=== PATIENT | male | born 1935 | race Caucasian/White ===

== ENCOUNTER 2017-10-23 17:56 | Emergency (ER) | payer MEDICARE, BC ==
[~2017-10-23] VITALS: Ht 172.7 cm; Wt 69.1 kg
[~2017-10-23 17:56] MED LIST: ASPIRIN E.C. 8181 MG PO; CIPRO 500MG TA500 MG PO; DOXYCYCLINE 10100 MG PO; FLOMAX 0.40.4 MG/CAP PO; GLUCOPHAGE1000 MG PO; LISINOPRIL10 MG PO; METFORMIN1000 MG PO; NEURONTIN300 MG/CAP PO; NORCO 325 MG-7.1 TAB PO; PRAVACHOL 20MG20 MG PO; PRAVASTATIN20 MG PO; PYRIDIUM 100MG100 MG PO; TERAZOSIN5 MG PO; UNABLE; ZESTRIL 10MG10 MG PO
[2017-10-23 17:58] VITALS: TEMP 98.1
[2017-10-23 18:59] LABS: BASO # 0.1 (0.0-0.2); BASO % 0.4 % (0.0-2.0); EOS # 0.1 (0.0-0.7); EOS % 0.6 % (0-4.0); GRAN # 11.3 (1.4-6.5); GRAN % 88.3 % (42.2-75.2); HEMATOCRIT 42.7 % (42.0-52.0); HEMOGLOBIN 13.8 g/dl (13.5-18.0); LYMPH % 7.5 % (20.0-51.0); MEAN CELL VOLUME 84 fl (80.0-100.0); MEAN CORPUSCULAR HEMOGLOBIN 27 pg (27.0-31.0); MEAN CORPUSCULAR HGB CONC 32 g/dl (33.0-37.0); MEAN PLATELET VOLUME 12.3 fl (7.4-10.4); MONO # 0.4 (0.1-0.6); MONO % 2.8 % (1.7-9.3); PLATELET COUNT 258 K/mm3 (130-400); RED BLOOD COUNT 5.11 M/mm3 (4.20-5.60); REDCELL DISTRIBUTION WIDTH-CV 16.3 % (11.5-14.5)
[2017-10-23 19:09] LABS: CALCIUM 9.3 mg/dL (8.4-10.2); CREATININE, serum 1.46 mg/dL (0.66-1.25); POTASSIUM 4.6 mmol/L (3.4-5.0)
[2017-10-23] MEDS ORDERED: PRILOTC (19:43)
[2017-10-23] MEDS ORDERED: PHENERGAN 25 TA25 MG PO (19:43)
[2017-10-23] MEDS ORDERED: AMBIEN 10MG10 MG PO (19:45)
[2017-10-23] MEDS ORDERED: ASPIRIN 81M81 MG/TA2 PO (19:45)
[2017-10-23] MEDS ORDERED: GLUCOTROL10 MG PO (19:46)
[2017-10-23 20:50] VITALS: BP 162/106; PULSE 101
== END 2017-10-23 21:03 | disposition home or self-care (01) ==
LOC: COL.ER 17:56
PROVIDERS: Emergency Medicine
DX: S00.93XA Contusion of unspecified part of head, initial encounter (principal); S22.42XA Multiple fractures of ribs, left side, initial encounter for closed fracture; J44.9 Chronic obstructive pulmonary disease, unspecified; I10 Essential (primary) hypertension; E11.9 Type 2 diabetes mellitus without complications; E78.00 Pure hypercholesterolemia, unspecified; F17.210 Nicotine dependence, cigarettes, uncomplicated; Z79.82 Long term (current) use of aspirin; Z79.84 Long term (current) use of oral hypoglycemic drugs; Z23 Encounter for immunization; Y92.009 Unspecified place in unspecified non-institutional (private) residence as the place of occurrence of the external cause; W18.39XA Other fall on same level, initial encounter
CPT/HCPCS: J1170; J2405; J3010; J7030

== ENCOUNTER 2017-10-24 12:44 | Inpatient (IN) | payer MEDICARE, BC ==
[~2017-10-24] VITALS: Ht 172.7 cm; Wt 70.5 kg
[~2017-10-24 12:44] MED LIST changes: +AMBIEN 10MG10 MG PO; +ASPIRIN 81M81 MG/TA2 PO; +GLUCOTROL10 MG PO; +PHENERGAN 25 TA25 MG PO; +PRILOTC
[2017-10-24 13:36] LABS: BASO % 0.3 % (0.0-2.0); EOS % 0.1 % (0-4.0); GRAN # 10.5 (1.4-6.5); HEMATOCRIT 41.1 % (42.0-52.0); HEMOGLOBIN 13.1 g/dl (13.5-18.0); LYMPH # 0.7 (1.2-3.4); LYMPH % 5.7 % (20.0-51.0); MEAN CELL VOLUME 83 fl (80.0-100.0); MEAN CORPUSCULAR HEMOGLOBIN 27 pg (27.0-31.0); MEAN CORPUSCULAR HGB CONC 32 g/dl (33.0-37.0); MEAN PLATELET VOLUME 12.3 fl (7.4-10.4); MONO # 0.5 (0.1-0.6); MONO % 4.6 % (1.7-9.3); PLATELET COUNT 245 K/mm3 (130-400); RED BLOOD COUNT 4.94 M/mm3 (4.20-5.60); REDCELL DISTRIBUTION WIDTH-CV 16.1 % (11.5-14.5)
[2017-10-24 13:44] LABS: BILIRUBIN,TOTAL 0.4 mg/dL (0.0-1.0); CALCIUM 9.2 mg/dL (8.4-10.2); CREATININE, serum 1.17 mg/dL (0.66-1.25); POTASSIUM 4.7 mmol/L (3.4-5.0); TOTAL PROTEIN 7.6 gm/dL (6.4-8.2)
[2017-10-24 14:40] VITALS: BP 149/74; PULSE 107; TEMP 97.6
[2017-10-24 17:32] VITALS: BP 143/73; PULSE 102; TEMP 98.2
[2017-10-24 19:50] VITALS: BP 142/94; PULSE 97; TEMP 98.3
[2017-10-24 23:25] VITALS: BP 155/73; PULSE 97; TEMP 98.3
[2017-10-25] VITALS (8 sets, daily range): BP systolic 108–152; BP diastolic 55–77; PULSE 71–126; TEMP 97.4–98.6
[2017-10-25 06:27] LABS: BASO % 0.3 % (0.0-2.0); EOS % 0.3 % (0-4.0); GRAN # 7.2 (1.4-6.5); GRAN % 83.4 % (42.2-75.2); HEMATOCRIT 38.2 % (42.0-52.0); HEMOGLOBIN 12.1 g/dl (13.5-18.0); LYMPH # 0.8 (1.2-3.4); LYMPH % 9.6 % (20.0-51.0); MEAN CELL VOLUME 86 fl (80.0-100.0); MEAN CORPUSCULAR HEMOGLOBIN 27 pg (27.0-31.0); MEAN CORPUSCULAR HGB CONC 32 g/dl (33.0-37.0); MEAN PLATELET VOLUME 12.7 fl (7.4-10.4); MONO # 0.5 (0.1-0.6); MONO % 6.1 % (1.7-9.3); PLATELET COUNT 225 K/mm3 (130-400); RED BLOOD COUNT 4.46 M/mm3 (4.20-5.60)
[2017-10-25 06:50] LABS: ALBUMIN 3.4 gm/dL (3.5-5.0); BILIRUBIN,TOTAL 0.3 mg/dL (0.0-1.0); CALCIUM 8.7 mg/dL (8.4-10.2); CREATININE, serum 1.27 mg/dL (0.66-1.25); POTASSIUM 4.5 mmol/L (3.4-5.0); TOTAL PROTEIN 6.4 gm/dL (6.4-8.2)
[2017-10-26] VITALS (495 sets, daily range): BP systolic 133–150; BP diastolic 60–117; PULSE 64–91; TEMP 97.4–98.6; O2SAT 72–100
[2017-10-26 06:40] LABS: BASO % 0.3 % (0.0-2.0); EOS % 0.2 % (0-4.0); GRAN # 10.3 (1.4-6.5); GRAN % 86.4 % (42.2-75.2); HEMATOCRIT 39.7 % (42.0-52.0); HEMOGLOBIN 12.8 g/dl (13.5-18.0); LYMPH # 0.8 (1.2-3.4); LYMPH % 6.4 % (20.0-51.0); MEAN CELL VOLUME 85 fl (80.0-100.0); MEAN CORPUSCULAR HEMOGLOBIN 27 pg (27.0-31.0); MEAN CORPUSCULAR HGB CONC 32 g/dl (33.0-37.0); MEAN PLATELET VOLUME 12.7 fl (7.4-10.4); MONO # 0.8 (0.1-0.6); MONO % 6.3 % (1.7-9.3); PLATELET COUNT 260 K/mm3 (130-400); RED BLOOD COUNT 4.69 M/mm3 (4.20-5.60); REDCELL DISTRIBUTION WIDTH-CV 16.1 % (11.5-14.5)
[2017-10-26 06:50] LABS: CALCIUM 9.2 mg/dL (8.4-10.2); CREATININE, serum 1.36 mg/dL (0.66-1.25); MAGNESIUM 1.9 mg/dL (1.6-2.3); POTASSIUM 4.5 mmol/L (3.4-5.0)
[2017-10-26 06:58] LABS: INR 1.4 (0.8-3.0); PROTHROMBIN TIME 16.6 SECONDS (9.7-12.8)
[2017-10-26 19:57] LABS: ARTERIAL BLD GAS O2 SATURATION 95.7 % (92-100); ARTERIAL BLD GAS TCO2 CT 14.2; ARTERIAL BLOOD GAS BASE EXCESS -12.5 (-2-2); ARTERIAL BLOOD GAS HCO3 13.3 meq/L (22-26); ARTERIAL BLOOD GAS PCO2 30.5 mmHg (35-45); ARTERIAL BLOOD GAS PO2 87.5 mmHg (80-100); ARTERIAL BLOOD GAS pH 7.26 (7.35-7.45)
[2017-10-26 20:46] LABS: ANION GAP 20 mmol/L (7-16); BLOOD UREA NITROGEN 25 mg/dL (9-20); CALCIUM 9.1 mg/dL (8.4-10.2); CARBON DIOXIDE 16 mmol/L (22-30); CHLORIDE 100 mmol/L (98-107); CREATININE, serum 1.48 mg/dL (0.66-1.25); GLUCOSE 286 mg/dL (74-106); LACTATE DEHYDROGENASE 552 U/L (313-618); POTASSIUM 4.6 mmol/L (3.4-5.0); SODIUM 136 mmol/L (137-145)
[2017-10-26 20:57] LABS: TROPONIN-I < 0.012 ng/mL (0.000-0.034)
[2017-10-26 22:08] LABS: ALCOHOL(ethanol),MEDICAL < 10 mg/dL; SALICYLATE < 1.0 mg/dL
[2017-10-26 22:30] LABS: ARTERIAL BLD GAS O2 SATURATION 94.7 % (92-100); ARTERIAL BLOOD GAS BASE EXCESS -9.9 (-2-2); ARTERIAL BLOOD GAS PCO2 30.6 mmHg (35-45); ARTERIAL BLOOD GAS pH 7.31 (7.35-7.45)
[2017-10-26 22:44] LABS: COLLECTION METHOD CLEAN CATCH
[2017-10-26 22:53] LABS: MUCOUS Present /lpf; PH 5 (5-8); SQUAMOUS EPITHELIAL None Seen /hpf; URINE APPEARANCE Clear; URINE BACTERIA None Seen /hpf; URINE BILIRUBIN Negative (NEGATIVE); URINE BLOOD 1+ (NEGATIVE); URINE COLOR Yellow; URINE GLUCOSE 1+ (NEGATIVE); URINE KETONE 2+ (NEGATIVE); URINE LEUKOCYTE ESTERASE Negative (NEGATIVE); URINE NITRATE Negative (NEGATIVE); URINE PROTEIN(semi-quant) 2+ (NEGATIVE); URINE UROBILINOGEN Negative (NEGATIVE)
[2017-10-26 23:21] LABS: MAGNESIUM 2.2 mg/dL (1.6-2.3); PHOSPHOROUS 5.5 mg/dL (2.5-4.5)
[2017-10-27] VITALS (947 sets, daily range): BP systolic 112–140; BP diastolic 57–97; PULSE 57–81; TEMP 97.1; O2SAT 71–100
[2017-10-27 01:17] LABS: CALCIUM 8.3 mg/dL (8.4-10.2); CREATININE, serum 1.24 mg/dL (0.66-1.25); POTASSIUM 3.8 mmol/L (3.4-5.0)
[2017-10-27 03:41] LABS: CALCIUM 8.5 mg/dL (8.4-10.2); CREATININE, serum 1.2 mg/dL (0.66-1.25); POTASSIUM 3.7 mmol/L (3.4-5.0)
[2017-10-27 05:33] LABS: HEMATOCRIT 33.5 % (42.0-52.0); HEMOGLOBIN 10.6 g/dl (13.5-18.0); MEAN CELL VOLUME 85 fl (80.0-100.0); MEAN CORPUSCULAR HEMOGLOBIN 27 pg (27.0-31.0); MEAN CORPUSCULAR HGB CONC 32 g/dl (33.0-37.0); MEAN PLATELET VOLUME 12.5 fl (7.4-10.4); PLATELET COUNT 247 K/mm3 (130-400); RED BLOOD COUNT 3.95 M/mm3 (4.20-5.60); REDCELL DISTRIBUTION WIDTH-CV 16.3 % (11.5-14.5)
[2017-10-27 05:46] LABS: CALCIUM 8.5 mg/dL (8.4-10.2); CREATININE, serum 1.21 mg/dL (0.66-1.25); POTASSIUM 3.7 mmol/L (3.4-5.0)
[2017-10-27 06:08] LABS: LYMPHOCYTE 5 % (20.0-51.0); NEUTROPHILS 95 % (42.0-75.2)
[2017-10-27 06:09] LABS: ANISOCYTOSIS 1+; POIKILOCYTOSIS 2+
[2017-10-27 06:10] LABS: BURR CELLS 2+; POLYCHROMASIA 1+
[2017-10-27 06:12] LABS: PLATELET ESTIMATE NORMAL (NORMAL)
[2017-10-27 07:25] LABS: CALCIUM 8.3 mg/dL (8.4-10.2); CREATININE, serum 1.14 mg/dL (0.66-1.25); POTASSIUM 3.8 mmol/L (3.4-5.0)
[2017-10-27 07:34] LABS: ARTERIAL BLD GAS O2 SATURATION 93.7 % (92-100); ARTERIAL BLOOD GAS BASE EXCESS -4.3 (-2-2); ARTERIAL BLOOD GAS HCO3 19.9 meq/L (22-26); ARTERIAL BLOOD GAS pH 7.39 (7.35-7.45)
[2017-10-27 09:19] LABS: CALCIUM 8.6 mg/dL (8.4-10.2); CREATININE, serum 1.11 mg/dL (0.66-1.25); POTASSIUM 3.7 mmol/L (3.4-5.0)
[2017-10-27 11:21] LABS: CALCIUM 8.7 mg/dL (8.4-10.2); CREATININE, serum 1.1 mg/dL (0.66-1.25); POTASSIUM 3.6 mmol/L (3.4-5.0)
[2017-10-27 13:23] LABS: CREATININE, serum 1.03 mg/dL (0.66-1.25); POTASSIUM 3.7 mmol/L (3.4-5.0)
[2017-10-27 16:11] LABS: CALCIUM 8.8 mg/dL (8.4-10.2); CREATININE, serum 1.14 mg/dL (0.66-1.25); POTASSIUM 4.1 mmol/L (3.4-5.0)
[2017-10-27 17:38] LABS: ARTERIAL BLD GAS O2 SATURATION 81.8 % (92-100); ARTERIAL BLD GAS TCO2 CT 19.7; ARTERIAL BLOOD GAS BASE EXCESS -5.7 (-2-2); ARTERIAL BLOOD GAS HCO3 18.7 meq/L (22-26); ARTERIAL BLOOD GAS PCO2 33.2 mmHg (35-45); ARTERIAL BLOOD GAS pH 7.37 (7.35-7.45)
[2017-10-27 17:39] LABS: ARTERIAL BLOOD GAS PO2 46.4 mmHg (80-100)
[2017-10-27 17:57] LABS: CALCIUM 8.3 mg/dL (8.4-10.2); CREATININE, serum 1.09 mg/dL (0.66-1.25)
[2017-10-27 19:45] LABS: CALCIUM 8.3 mg/dL (8.4-10.2); CREATININE, serum 1.1 mg/dL (0.66-1.25); POTASSIUM 4.3 mmol/L (3.4-5.0)
[2017-10-28] VITALS (873 sets, daily range): BP systolic 137–148; BP diastolic 70–83; PULSE 64–87; TEMP 96.7–98.2; O2SAT 72–100
[2017-10-28 05:28] LABS: ARTERIAL BLD GAS O2 SATURATION 96.7 % (92-100); ARTERIAL BLD GAS TCO2 CT 20.8; ARTERIAL BLOOD GAS BASE EXCESS -3.6 (-2-2); ARTERIAL BLOOD GAS HCO3 19.9 meq/L (22-26); ARTERIAL BLOOD GAS PCO2 30.6 mmHg (35-45); ARTERIAL BLOOD GAS PO2 90.8 mmHg (80-100); ARTERIAL BLOOD GAS pH 7.43 (7.35-7.45)
[2017-10-28 05:48] LABS: MEAN CELL VOLUME 85 fl (80.0-100.0); MEAN CORPUSCULAR HEMOGLOBIN 27 pg (27.0-31.0); MEAN CORPUSCULAR HGB CONC 32 g/dl (33.0-37.0); MEAN PLATELET VOLUME 12.8 fl (7.4-10.4); PLATELET COUNT 241 K/mm3 (130-400); RED BLOOD COUNT 3.71 M/mm3 (4.20-5.60); REDCELL DISTRIBUTION WIDTH-CV 16.7 % (11.5-14.5)
[2017-10-28 05:53] LABS: HEMATOCRIT 31.4 % (42.0-52.0)
[2017-10-28 06:01] LABS: CALCIUM 8.3 mg/dL (8.4-10.2); CREATININE, serum 1.01 mg/dL (0.66-1.25); POTASSIUM 4.1 mmol/L (3.4-5.0)
[2017-10-28 07:37] LABS: ANISOCYTOSIS 1+; BAND 9 % (0-10); HYPOCHROMIA 2+; LYMPHOCYTE 4 % (20.0-51.0); NEUTROPHILS 85 % (42.0-75.2); PLATELET ESTIMATE NORMAL (NORMAL)
[2017-10-28 07:39] LABS: BURR CELLS 2+
[2017-10-28 11:06] LABS: INR 1.4 (0.8-3.0); PROTHROMBIN TIME 16.2 SECONDS (9.7-12.8)
[2017-10-28 11:09] LABS: PARTIAL THROMBOPLASTIN TIME 40.4 SECONDS (26.0-37.0)
[2017-10-29] VITALS (817 sets, daily range): BP systolic 15–176; BP diastolic 70–870; PULSE 84–98; TEMP 96.5–97.7; O2SAT 72–100
[2017-10-29 05:28] LABS: ARTERIAL BLD GAS O2 SATURATION 95.4 % (92-100); ARTERIAL BLD GAS TCO2 CT 19.9; ARTERIAL BLOOD GAS BASE EXCESS -5.6 (-2-2); ARTERIAL BLOOD GAS HCO3 18.9 meq/L (22-26); ARTERIAL BLOOD GAS PCO2 33.4 mmHg (35-45); ARTERIAL BLOOD GAS PO2 82.1 mmHg (80-100); ARTERIAL BLOOD GAS pH 7.37 (7.35-7.45)
[2017-10-29 05:46] LABS: HEMOGLOBIN 10.2 g/dl (13.5-18.0); MEAN CELL VOLUME 84 fl (80.0-100.0); MEAN CORPUSCULAR HEMOGLOBIN 27 pg (27.0-31.0); MEAN CORPUSCULAR HGB CONC 32 g/dl (33.0-37.0); MEAN PLATELET VOLUME 12.1 fl (7.4-10.4); PLATELET COUNT 283 K/mm3 (130-400); RED BLOOD COUNT 3.77 M/mm3 (4.20-5.60); REDCELL DISTRIBUTION WIDTH-CV 17.1 % (11.5-14.5)
[2017-10-29 05:52] LABS: HEMATOCRIT 31.7 % (42.0-52.0)
[2017-10-29 05:58] LABS: CALCIUM 8.5 mg/dL (8.4-10.2); CREATININE, serum 1.07 mg/dL (0.66-1.25)
[2017-10-29 06:03] LABS: BAND 5 % (0-10); LYMPHOCYTE 1 % (20.0-51.0); NEUTROPHILS 93 % (42.0-75.2)
[2017-10-29 06:05] LABS: BURR CELLS 1+
[2017-10-29 06:06] LABS: ANISOCYTOSIS 1+; PLATELET ESTIMATE NORMAL (NORMAL)
[2017-10-30] VITALS (686 sets, daily range): BP systolic 128–158; BP diastolic 77–99; PULSE 65–98; TEMP 97.6–98.1; O2SAT 71–100
[2017-10-30 05:57] LABS: MEAN CELL VOLUME 84 fl (80.0-100.0); MEAN CORPUSCULAR HGB CONC 32 g/dl (33.0-37.0); MEAN PLATELET VOLUME 12.4 fl (7.4-10.4); PLATELET COUNT 260 K/mm3 (130-400); RED BLOOD COUNT 3.43 M/mm3 (4.20-5.60); REDCELL DISTRIBUTION WIDTH-CV 17.1 % (11.5-14.5)
[2017-10-30 06:05] LABS: HEMATOCRIT 28.8 % (42.0-52.0); HEMOGLOBIN 9.1 g/dl (13.5-18.0); MEAN CORPUSCULAR HEMOGLOBIN 27 pg (27.0-31.0)
[2017-10-30 06:24] LABS: CALCIUM 8.7 mg/dL (8.4-10.2); CREATININE, serum 1.1 mg/dL (0.66-1.25); POTASSIUM 4.1 mmol/L (3.4-5.0)
[2017-10-30 06:47] LABS: BAND 5 % (0-10); HYPERSEGMENTED POLYS PRESENT; LYMPHOCYTE 1 % (20.0-51.0); NEUTROPHILS 94 % (42.0-75.2); PLATELET ESTIMATE NORMAL (NORMAL)
[2017-10-30 06:48] LABS: ANISOCYTOSIS 1+; HYPOCHROMIA 2+
[2017-10-30 06:49] LABS: BURR CELLS 1+
[2017-10-31] VITALS (682 sets, daily range): BP systolic 133–162; BP diastolic 59–93; PULSE 78–100; TEMP 97.2–98.6; O2SAT 61–100
[2017-10-31 06:35] LABS: MEAN CELL VOLUME 84 fl (80.0-100.0); MEAN CORPUSCULAR HGB CONC 32 g/dl (33.0-37.0); MEAN PLATELET VOLUME 12.3 fl (7.4-10.4); PLATELET COUNT 275 K/mm3 (130-400); RED BLOOD COUNT 3.52 M/mm3 (4.20-5.60); REDCELL DISTRIBUTION WIDTH-CV 17.1 % (11.5-14.5)
[2017-10-31 06:41] LABS: HEMATOCRIT 29.7 % (42.0-52.0); HEMOGLOBIN 9.6 g/dl (13.5-18.0); MEAN CORPUSCULAR HEMOGLOBIN 27 pg (27.0-31.0)
[2017-10-31 06:48] LABS: CALCIUM 8.9 mg/dL (8.4-10.2); CREATININE, serum 1.16 mg/dL (0.66-1.25); POTASSIUM 3.6 mmol/L (3.4-5.0)
[2017-10-31 08:02] LABS: BAND 1 % (0-10); LYMPHOCYTE 9 % (20.0-51.0); NEUTROPHILS 85 % (42.0-75.2); NUCLEATED RED BLOOD CELL 1 (0-6); PLATELET ESTIMATE NORMAL (NORMAL)
[2017-10-31 08:03] LABS: ANISOCYTOSIS 1+; POIKILOCYTOSIS 1+
[2017-10-31 08:04] LABS: HYPOCHROMIA 1+; OVALOCYTES 1+
[2017-10-31 08:05] LABS: BURR CELLS 1+
[2017-11-01] VITALS (7 sets, daily range): BP systolic 100–156; BP diastolic 65–77; PULSE 63–108; TEMP 98–98.6
[2017-11-01 06:01] LABS: HEMOGLOBIN 10.3 g/dl (13.5-18.0); MEAN CELL VOLUME 85 fl (80.0-100.0); MEAN CORPUSCULAR HEMOGLOBIN 27 pg (27.0-31.0); MEAN CORPUSCULAR HGB CONC 32 g/dl (33.0-37.0); MEAN PLATELET VOLUME 12.3 fl (7.4-10.4); PLATELET COUNT 321 K/mm3 (130-400); RED BLOOD COUNT 3.76 M/mm3 (4.20-5.60); REDCELL DISTRIBUTION WIDTH-CV 16.8 % (11.5-14.5)
[2017-11-01 06:06] LABS: HEMATOCRIT 31.9 % (42.0-52.0)
[2017-11-01 06:10] LABS: CREATININE, serum 1.22 mg/dL (0.66-1.25); POTASSIUM 3.4 mmol/L (3.4-5.0)
[2017-11-01 07:04] LABS: ANISOCYTOSIS 1+; PLATELET ESTIMATE NORMAL (NORMAL)
[2017-11-01 07:15] LABS: NEUTROPHILS 83 % (42.0-75.2)
[2017-11-01 07:16] LABS: BAND 2 % (0-10); LYMPHOCYTE 12 % (20.0-51.0)
[2017-11-01 07:18] LABS: HYPOCHROMIA 1+
[2017-11-02 02:34] VITALS: BP 159/61; PULSE 88; TEMP 98.6
[2017-11-02 07:30] VITALS: BP 140/60; PULSE 99; TEMP 97.8
[2017-11-02] MEDS ORDERED: CARDIZEM CD 24240 MG PO (07:52)
[2017-11-02] MEDS ORDERED: MIRALAX510G PO (07:52)
[2017-11-02] MEDS ORDERED: COLACE 100100 MG/CAP PO (07:52)
[2017-11-02 08:26] LABS: HEMATOCRIT 33.4 % (42.0-52.0); HEMOGLOBIN 10.6 g/dl (13.5-18.0); MEAN CELL VOLUME 85 fl (80.0-100.0); MEAN CORPUSCULAR HEMOGLOBIN 27 pg (27.0-31.0); MEAN CORPUSCULAR HGB CONC 32 g/dl (33.0-37.0); MEAN PLATELET VOLUME 12.2 fl (7.4-10.4); PLATELET COUNT 332 K/mm3 (130-400); RED BLOOD COUNT 3.95 M/mm3 (4.20-5.60); REDCELL DISTRIBUTION WIDTH-CV 17.1 % (11.5-14.5)
[2017-11-02 08:39] LABS: CALCIUM 8.6 mg/dL (8.4-10.2); CREATININE, serum 1.24 mg/dL (0.66-1.25); POTASSIUM 3.4 mmol/L (3.4-5.0)
[2017-11-02 08:46] LABS: LYMPHOCYTE 5 % (20.0-51.0); METAMYELOCYTE 1 % (0-0); NEUTROPHILS 91 % (42.0-75.2)
[2017-11-02 08:48] LABS: ANISOCYTOSIS 1+; PLATELET ESTIMATE NORMAL (NORMAL)
[2017-11-02 08:50] LABS: BURR CELLS 3+
[2017-11-02] MEDS ORDERED: INCRUSE EL62.5 MCG/A IH (10:52)
[2017-11-02] MEDS ORDERED: LEVEMIR FLEX100 U/ML SQ (10:53)
[2017-11-02] MEDS ORDERED: PROAIR HFA0.09 MG/AC IH (10:53)
[2017-11-02] MEDS ORDERED: GLUCOPHAGE500 MG/TAB PO (10:53)
[2017-11-02] MEDS ORDERED: FREESTYLE PREC1 EAC5 MC (10:54)
[2017-11-02] MEDS ORDERED: THE MEDICINE SH1 DE3 MC (10:54)
[2017-11-02] MEDS ORDERED: LANCETS MC (10:55)
[2017-11-02] MEDS ORDERED: GLUCOSE TEST ST1 DEV MC (10:55)
[2017-11-02] MEDS ORDERED: PERCOCET 325 MG1 TA3 PO (10:57)
[2017-11-02] MEDS ORDERED: ASPI325T6 PO (11:04)
== END 2017-11-02 13:41 | disposition home health service (06) | DRG 183 ==
LOC: COL.ER 12:44 → MEDICAL 13:22 → ICU 10-26 11:55 → MEDICAL 10-31 18:04
PROVIDERS: Emergency Medicine; Internal Medicine; Internal Medicine Pulmonary Disease; Nurse Practitioner Family
PROC: 02H633Z Insertion of Infusion Device into Right Atrium, Percutaneous Approach (ICD-10-PCS; principal; 2017-10-26)
DX: S22.42XA Multiple fractures of ribs, left side, initial encounter for closed fracture (principal); J96.01 Acute respiratory failure with hypoxia; J98.11 Atelectasis; I48.92 Unspecified atrial flutter; E87.2 Acidosis; J90 Pleural effusion, not elsewhere classified; I10 Essential (primary) hypertension; E11.65 Type 2 diabetes mellitus with hyperglycemia; J44.9 Chronic obstructive pulmonary disease, unspecified; W18.30XA Fall on same level, unspecified, initial encounter; F17.210 Nicotine dependence, cigarettes, uncomplicated; Z85.828 Personal history of other malignant neoplasm of skin
CPT/HCPCS: 99232-AI; 99233-AI; 99239; A9284; C1751; G0378; G8987-GO; G8988-GO; J0456; J0696; J1170; J1644; J1650; J1815; J2270; J2405; J2543; J2920; J2930; J3010; J3480; J7030; J7050

== ENCOUNTER 2017-12-01 09:06 | Outpatient (CLI) | payer MEDICARE, BC ==
[~2017-12-01] VITALS: Ht 172.8 cm; Wt 64.5 kg
[~2017-12-01 09:06] MED LIST changes: +ASPI325T6 PO; +CARDIZEM CD 24240 MG PO; +COLACE 100100 MG/CAP PO; +FREESTYLE PREC1 EAC5 MC; +GLUCOPHAGE500 MG/TAB PO; +GLUCOSE TEST ST1 DEV MC; +INCRUSE EL62.5 MCG/A IH; +LANCETS MC; +LEVEMIR FLEX100 U/ML SQ; +MIRALAX510G PO; +PERCOCET 325 MG1 TA3 PO; +PROAIR HFA0.09 MG/AC IH; +THE MEDICINE SH1 DE3 MC
[2017-12-01 09:53] VITALS: BP 123/68; PULSE 65
[2017-12-01] MEDS ORDERED: ASPIRIN 32325 MG/TAB PO (09:57)
[2017-12-01] MEDS ORDERED: CARDIZEM CD 24240 MG PO (09:58)
[2017-12-01] MEDS ORDERED: INCRUSE EL62.5 MCG/A IH (09:59)
[2017-12-01] MEDS ORDERED: PROAIR HFA0.09 MG/AC IH (10:00)
[2017-12-01] MEDS ORDERED: GLUCOPHAGE500 MG/TAB PO (10:00)
[2017-12-01] MEDS ORDERED: NORCO 325 MG-7.1 TAB PO (10:01)
[2017-12-01] MEDS ORDERED: LEVEMIR FLEX100 U/ML SQ (10:01)
[2017-12-01] MEDS ORDERED: CEPHALEXIN500 M1 PO (10:52)
== END 2017-12-01 11:28 | disposition home or self-care (01) ==
LOC: COL.CAR
DX: I48.0 Paroxysmal atrial fibrillation (principal); R42 Dizziness and giddiness; I48.92 Unspecified atrial flutter; N40.0 Benign prostatic hyperplasia without lower urinary tract symptoms; K21.9 Gastro-esophageal reflux disease without esophagitis; E78.5 Hyperlipidemia, unspecified; I10 Essential (primary) hypertension; M19.90 Unspecified osteoarthritis, unspecified site; E11.9 Type 2 diabetes mellitus without complications; I72.3 Aneurysm of iliac artery; I05.9 Rheumatic mitral valve disease, unspecified; F17.210 Nicotine dependence, cigarettes, uncomplicated; Z79.82 Long term (current) use of aspirin; Z79.4 Long term (current) use of insulin; Z82.49 Family history of ischemic heart disease and other diseases of the circulatory system; Z82.3 Family history of stroke

== ENCOUNTER → 2018-11-16 | Outpatient (CLI) | payer OTHER ==
[~2018-11-16] MED LIST changes: +ASPIRIN 32325 MG/TAB PO; +CEPHALEXIN500 M1 PO
== END ==
LOC: COL.RAD 13:06
DX: M51.26 Other intervertebral disc displacement, lumbar region (principal); M48.07 Spinal stenosis, lumbosacral region

== ENCOUNTER 2019-06-05 18:55 | Emergency (ER) | payer MEDICARE, BC ==
[~2019-06-05] VITALS: Ht 172.7 cm; Wt 59.1 kg
[2019-06-05 18:58] VITALS: TEMP 97.8
[2019-06-05] MEDS ORDERED: GLUCOPHAGE1000 MG PO (19:22)
[2019-06-05] MEDS ORDERED: GLUCOTROL10 MG PO (19:23)
[2019-06-05] MEDS ORDERED: LEVEMIR FLEX100 U/ML SQ (19:24)
[2019-06-05] MEDS ORDERED: ZESTRIL40 MG PO (19:25)
[2019-06-05] MEDS ORDERED: STOOL SOFTENER100 M2 PO (19:28)
[2019-06-05] MEDS ORDERED: ULTRAM 50MG TAB50 MG PO (19:29)
[2019-06-05 20:09] VITALS: BP 157/79; PULSE 88
== END 2019-06-05 20:09 | disposition home or self-care (01) ==
LOC: COL.ER 18:55
DX: E16.2 Hypoglycemia, unspecified (principal); R41.82 Altered mental status, unspecified; Z79.82 Long term (current) use of aspirin; Z79.4 Long term (current) use of insulin

== ENCOUNTER 2019-12-20 15:01 | Inpatient (IN) | payer MEDICARE, BC ==
[~2019-12-20] VITALS: Ht 175.3 cm; Wt 53.2 kg
[~2019-12-20 15:01] MED LIST changes: +STOOL SOFTENER100 M2 PO; +ULTRAM 50MG TAB50 MG PO; +ZESTRIL40 MG PO
[2019-12-20 15:43] LABS: HEMATOCRIT 39.5 % (42.0-52.0); MEAN CELL VOLUME 88 fl (80.0-100.0); MEAN CORPUSCULAR HEMOGLOBIN 31 pg (27.0-31.0); MEAN CORPUSCULAR HGB CONC 35 g/dl (33.0-37.0); MEAN PLATELET VOLUME 12.1 fl (7.4-10.4); RED BLOOD COUNT 4.48 M/mm3 (4.20-5.60); REDCELL DISTRIBUTION WIDTH-CV 14.8 % (11.5-14.5)
[2019-12-20 15:46] LABS: INR 1.4 (0.8-3.0); PROTHROMBIN TIME 16.2 SECONDS (9.7-12.8)
[2019-12-20 15:47] LABS: PLATELET COUNT 42 K/mm3 (130-400)
[2019-12-20 15:52] LABS: ALBUMIN 3.2 gm/dL (3.5-5.0); BILIRUBIN,TOTAL 7.2 mg/dL (0.0-1.0); MAGNESIUM 1.9 mg/dL (1.6-2.3); POTASSIUM 4.1 mmol/L (3.4-5.0); TOTAL PROTEIN 6.1 gm/dL (6.4-8.2)
[2019-12-20 15:55] LABS: CREATININE, serum 2.46 (0.66-1.25)
[2019-12-20 16:04] LABS: COLLECTION METHOD CLEAN CATCH
[2019-12-20 16:05] LABS: TROPONIN-I 0.135 ng/mL (0.000-0.035)
[2019-12-20 16:07] LABS: BAND 5 % (0-10); LYMPHOCYTE 7 % (20.0-51.0); METAMYELOCYTE 1 % (0-0); NEUTROPHILS 84 % (42.0-75.2); PLATELET ESTIMATE DECREASED (NORMAL)
[2019-12-20 16:08] LABS: ANISOCYTOSIS 2+; POIKILOCYTOSIS 1+; SCHISTOCYTES 2+
[2019-12-20 16:19] LABS: MUCOUS Present /lpf; PH 5 (5-8); SQUAMOUS EPITHELIAL None Seen /hpf; URINE APPEARANCE Hazy; URINE BACTERIA None Seen /hpf; URINE BILIRUBIN Negative (NEGATIVE); URINE BLOOD 2+ (NEGATIVE); URINE COLOR Amber; URINE GLUCOSE Negative (NEGATIVE); URINE KETONE Negative (NEGATIVE); URINE LEUKOCYTE ESTERASE Negative (NEGATIVE); URINE NITRATE Negative (NEGATIVE); URINE PROTEIN(semi-quant) 2+ (NEGATIVE); URINE UROBILINOGEN >=4.0 mg/dL (NEGATIVE)
[2019-12-20 16:25] LABS: C-REACTIVE PROTEIN 54.1 mg/dL (0.0-0.9)
[2019-12-20 18:37] VITALS: BP 105/61; PULSE 74; TEMP 97.9
[2019-12-20 20:45] VITALS: BP 125/77; PULSE 81; TEMP 98.3
--- NOTE | 2019-12-20 21:30 | NUR ---
Admission assessment complete. VS stable. Oriented to room/policy. Plan of care discussed for this shift to include pain control, NPO at midnight, HS meds and IV fluids. Verbalizes undrstanding. Call light in reach/bed in low/alarm on. Will monitor.
[2019-12-21] VITALS (445 sets, daily range): BP systolic 65–127; BP diastolic 40–75; PULSE 67–135; TEMP 97.3–99; O2SAT 68–99
--- NOTE | 2019-12-21 04:20 | NUR ---
Notified by telecommunication engineer of possible A-FIB. Cardiopulm notified of need for EKG.
--- NOTE | 2019-12-21 06:15 | NUR ---
Dr Dias notified of critical lab-positive blood culture. NO new orders received.
--- NOTE | 2019-12-21 06:20 | NUR ---
C/O pain to back/flank-described as generalized ache-rating 8/10 on pain scale. Morphine 2mg given per dr order.
[2019-12-21 07:25] LABS: HEMOGLOBIN 12.7 g/dl (13.5-18.0); MEAN CELL VOLUME 88 fl (80.0-100.0); MEAN CORPUSCULAR HEMOGLOBIN 31 pg (27.0-31.0); MEAN CORPUSCULAR HGB CONC 35 g/dl (33.0-37.0); RED BLOOD COUNT 4.12 M/mm3 (4.20-5.60); REDCELL DISTRIBUTION WIDTH-CV 14.6 % (11.5-14.5)
[2019-12-21 07:37] LABS: ALBUMIN 2.5 gm/dL (3.5-5.0); BILIRUBIN,TOTAL 3.7 mg/dL (0.0-1.0); CALCIUM 7.7 mg/dL (8.4-10.2); CREATININE, serum 1.94 (0.66-1.25); MAGNESIUM 1.8 mg/dL (1.6-2.3); PHOSPHOROUS 3.6 mg/dL (2.5-4.5); POTASSIUM 3.9 mmol/L (3.4-5.0); TOTAL PROTEIN 5.2 gm/dL (6.4-8.2)
[2019-12-21 07:38] LABS: HEMATOCRIT 36.2 % (42.0-52.0); INR 1.3 (0.8-3.0); PROTHROMBIN TIME 14.4 SECONDS (9.7-12.8)
[2019-12-21 07:40] LABS: PLATELET COUNT 29 K/mm3 (130-400)
[2019-12-21 07:50] LABS: TROPONIN-I 0.087 ng/mL (0.000-0.035)
[2019-12-21 08:19] LABS: BAND 14 % (0-10); EOSINOPHIL 1 % (0-4); LYMPHOCYTE 1 % (20.0-51.0); NEUTROPHILS 83 % (42.0-75.2); PLATELET ESTIMATE DECREASED (NORMAL); POIKILOCYTOSIS 1+
--- NOTE | 2019-12-21 08:20 | NUR ---
Patient lying in bed with eyes open. Explains that he is having pain all over, 8/10, describes as sharp. Bruising noted to patient body. Gill to dependent drainage draining clear yellow urine. Denies needs at this time.
--- NOTE | 2019-12-21 08:30 | NUR ---
Administered Morphine as prescribed.
--- NOTE | 2019-12-21 09:37 | NUR ---
CELESTINO attended clincal rounds with the team. PT/OT ordered. After rounds CELESTINO met with the patient and the patient's , Shavonne to complete initial intake. The patient lives in [place] with Shavonne. The patient has a walker and Shavonne assist the patient with spongebaths. The patient cannot step into their tub. The patient's PCP is Dr. Fuentes with the [facility]. The patient receives medications mailed by the [facility]. The patient has advanced directives in the EMR. CELESTINO discussed the possiblity of post acute rehab. The patient states he would like to return home and was not interested in HHS either. CELESTINO will continue to monitor for a safe discharge.
--- NOTE | 2019-12-21 11:41 | NUR ---
Patient lying in bed with eyes open. Rates generalized body pain 6/10 and would like pain medication. Morphine administered as prescribed. Patient says that he feels like he is having hard time getting air. Vital signs stable. Repositioned patient in the bed as his chest was not at top of bed, more towards middle. After repositioning the patient says that he feels a little better. in room with the patient. Denies additional needs at this time.
--- NOTE | 2019-12-21 14:09 | NUR ---
Patient says he is not feeling well. Requests to get out of hospital. Says that he just wants to go home and whatever happens to him will happen. Patient having shortness of air and chest pain. Tele calls and says that the patient has high heart rate but they are not able to see what rhythm he is in.
--- NOTE | 2019-12-21 14:30 | NUR ---
BP's low. Heart rate 70's. Patient says that he still is short of breath and having chest pain. Dr. Dias in room and orders received for fluid bolus, started at this time, and may repeat x1 if BP's do not improve. Zofran administered as patient says that he feels nauseated.
--- NOTE | 2019-12-21 14:42 | NUR ---
Bp 65/44, heart rate 60's. Patient continues to says he doesn't feel well and calls out for help. SpO2 hard to trace at this time. Second fluid bolus of 250ml started at this time.
[2019-12-21 14:53] LABS: HEMATOCRIT 40.9 % (42.0-52.0); HEMOGLOBIN 14.1 g/dl (13.5-18.0); MEAN CELL VOLUME 89 fl (80.0-100.0); MEAN CORPUSCULAR HEMOGLOBIN 31 pg (27.0-31.0); MEAN CORPUSCULAR HGB CONC 35 g/dl (33.0-37.0); RED BLOOD COUNT 4.59 M/mm3 (4.20-5.60)
[2019-12-21 14:55] LABS: PLATELET COUNT 27 K/mm3 (130-400)
[2019-12-21 14:56] LABS: CREATININE, serum 1.75 (0.66-1.25)
--- NOTE | 2019-12-21 14:56 | NUR ---
UPDATED ON CRITICAL LABS.
--- NOTE | 2019-12-21 15:24 | NUR ---
500ml bolus initiated per Dr. Rosales at this time.
--- NOTE | 2019-12-21 15:51 | NUR ---
Report called to Christiana in ICU.
--- NOTE | 2019-12-21 15:55 | NUR ---
Patient taken to ICU via bed by this nurse and JESSICA Mccurdy. All belongings with the patient. follows.
[2019-12-21 15:58] LABS: PARTIAL THROMBOPLASTIN TIME 36.8 SECONDS (26.0-37.0)
--- NOTE | 2019-12-21 16:00 | NUR ---
PT ARRIVED TO ICU VIA BED BY NATALIE LOPEZ. PT AWAKE AND ALERT. VS TEMP 97.8, PULSE 72, REGULAR, RESP 18, 02 SAT 96% ON 2.5L OM, BP 83/53. MED ORDERS INITATED FOR DOPAMIN GTT, HEPARIN GTT, AND AMIO GTT. AFTER PATIENT STABILIZED I UPDATED ON PATIENT'S STATUS AND SHE IS NOW AT PATIENT'S BEDSIDE.
[2019-12-21 16:34] LABS: D-DIMER > 5250.00 ng/mLDDu (200-230)
--- NOTE | 2019-12-21 17:17 | NUR ---
DR MORENO NOTIFIED
[2019-12-21 17:30] LABS: BAND 1 % (0-10); LYMPHOCYTE 10 % (20.0-51.0); NEUTROPHILS 88 % (42.0-75.2)
[2019-12-21 17:31] LABS: PLATELET ESTIMATE DECREASED (NORMAL)
--- NOTE | 2019-12-21 21:30 | NUR ---
RN called Patrizia willams back and spoke to about the patients overal plan of care. RN notified her of an increased troponin that resulted. mentioned about changing the dopamine to levophed and the antiobitic from zosyn to merropenem. I told her tomorrow that could be discussed with the full roll inspector.
--- NOTE | 2019-12-21 21:49 | NUR ---
STEVEN, [employer] [place] HISTORY PROFESSOR REPORTED ACUTE SC EKG TO JESSICA ANAND.
[2019-12-22] VITALS (612 sets, daily range): BP systolic 81–107; BP diastolic 49–68; PULSE 62–97; TEMP 98.5–98.6; O2SAT 53–99
[2019-12-22 06:15] LABS: HEMATOCRIT 38.3 % (42.0-52.0); HEMOGLOBIN 13.3 g/dl (13.5-18.0); MEAN CELL VOLUME 88 fl (80.0-100.0); MEAN CORPUSCULAR HEMOGLOBIN 31 pg (27.0-31.0); MEAN CORPUSCULAR HGB CONC 35 g/dl (33.0-37.0); RED BLOOD COUNT 4.34 M/mm3 (4.20-5.60); REDCELL DISTRIBUTION WIDTH-CV 15.1 % (11.5-14.5)
[2019-12-22 06:23] LABS: CREATININE, serum 1.62 (0.66-1.25); POTASSIUM 3.8 mmol/L (3.4-5.0)
[2019-12-22 06:37] LABS: PLATELET COUNT 27 K/mm3 (130-400)
[2019-12-22 07:22] LABS: BAND 4 % (0-10); LYMPHOCYTE 13 % (20.0-51.0); NEUTROPHILS 79 % (42.0-75.2); OVALOCYTES 1+
[2019-12-22 07:23] LABS: PLATELET ESTIMATE DECREASED (NORMAL); SCHISTOCYTES 1+
--- NOTE | 2019-12-22 09:44 | NUR ---
Pt resting, at bedside. VSS titrating off dopamine.
--- NOTE | 2019-12-22 11:19 | NUR ---
tar worker attended clinical rounds and met with patient and spouse, along with Carlos Dunlap, Palliative Care nurse. Patient verbalized understanding of his current need for treatment and physician's desires to transfer to a higher level of care due to cardiac needs. Patient verbalizes he "wants to go home" and prefers comfort care and no transfer. Spouse is at bedside and verbalizes agreement with patient's wishes. Spouse states, directly, that she cannot care for patient at home and that patient will not discharge home. Hospice house discussed and patient and spouse agreeable to referral. Worker provided referral, faxed clinical information to [facility] and answered questions for patient and spouse. Will plan transfer today, if Hospice House will accept. Awaiting on Hospice House decision after lunch.
--- NOTE | 2019-12-22 12:59 | NUR ---
Met with pt and his , Bree, after rounding Dr Escobar. Pt has been consistent in telling each of his doctors that he does not want to be transfer for more intensive care but rather he wants to go home and be comfortable. Mabel Collins and I spoke with pt and his about hospice services, what they will cover, where these services can be offered, and what their primary focus would be. Pt is very clear that he wants to go home, be with his and be comfortable. His reports that she cannot manage his care at home and he states he doesn't want ot pay for inhome care. He and Bree are agreeable to the [facility] and we are working to arrange transfer their soon, hopefully today. Pt and verbalize acceptance of this plan. Mari tom provided with explanation.
--- NOTE | 2019-12-22 13:09 | NUR ---
Allyson with [facility] states they will be able to admit today or tomorrow and will let us know later today. Worker spoke with nurse (who will notify Dr Escobar) and spouse regarding the above information.
[2019-12-22] MEDS ORDERED: ROXANOL 20MG20 MG/ML SL (16:09)
[2019-12-22] MEDS ORDERED: ATIVAN 1MG T1 MG/TAB PO (16:09)
--- NOTE | 2019-12-22 16:21 | NUR ---
Allyson with the [facility] contacted CELESTINO. She reports they can take the patient on 12/22 at 1330. CELESTINO set up [facility] transport for 1300 on 12/22. CELESTINO informed the team. CELESTINO needs to fax hard scripts to [facility] by 1000 on 12/22. [facility] closes at 1200. The transfer paperwork is in the patient's chart and will need to be sign by patient or his and the hospitalist. The fax number to send discharge orders is ([phone]). The number for report is ([phone]). Will continue continue to monitor.
--- NOTE | 2019-12-22 16:34 | NUR ---
SW contacted and updated the patient's , Shavonne, on the above information. Shavonne was agreeable to the plan. SW also read the IM form outloud to Shavonne. Shavonne verbalized understanding and gave SW approval to sign the form on her behalf. SW to continue to follow.
--- NOTE | 2019-12-22 17:29 | NUR ---
Pt arrived to unit via wheelchair. Assessment completed, lungs clear. Denies needs at this time. Will continue to monitor. Call light within reach.
--- NOTE | 2019-12-23 05:07 | NUR ---
PATIENT WAS ASSESSED AND BRUISING NOTED ON HIS BODY. PATIENT DID NOT REPORT ANY PAIN. PATIENT WAS COMPLAINING OF IT BEING COLD SO A WARM BLANKET WAS GIVEN TO THE PATIENT AND THE THERMOSTAT WAS TURNED UP. PATIENT WAS STATING THAT HE WANTED TO GO HOME RIGHT THEN AND DID NOT WANT TO WAIT AND WAS JUST ANXIOUS. A PRN DOSE OF ATIVAN WAS GIVEN TO THE PATIENT AND A CUP OF COFFEE AND HE WAS ABLE TO REST THROUGH THE NIGHT. PATIENT HAS DENIED ANY OTHER NEEDS. WILL REPORT OFF TO DAY SHIFT.
--- NOTE | 2019-12-23 06:17 | NUR ---
SUPPLY TECH CAME AND GOT NURSE. PATIENT TOOK ALL THE CUSHIONS OFF OF THE BENCH UNDER THE WINDOW AND LAID THEM ON THE FLOOR AND PLACED HIMSELF ON TOP OF THE CUSHIONS AFTER TAKING HIS GOWN OFF. PATIENT WAS LAYING ON THE CUSHIONS THAT WERE UNDER HIS LEGS, BUTTOCK, AND HEAD. PATIENT WAS GIVEN AN ATIVAN FOR SOME ANXIOUSNESS BEFORE HE FINALLY WENT TO BED. HE WAS ALSO COMPLAINING THAT HE WAS COLD. WITH THE WEATHER, THE POWER FLICKERED AND THE AC STOPPED WORKING. THIS NURSE THINKS THAT WITH THE ATIVAN AND NO AC THE PATIENT GOT HOT AND POSITIONED HIMSELF ON THE FLOOR ON TOP OF THE CUSHIONS TO COOL OFF. PATIENT DID STATE THAT HE WAS GETTING COOL. QUALITY ASSURANCE SUPERVISOR BODY NOTIFIED.
--- NOTE | 2019-12-23 09:47 | NUR ---
CELESTINO update: CELESTINO faxed DC orders to [facility]. Transport is setup with [facility]. RX sent to [facility].
--- NOTE | 2019-12-23 10:07 | NUR ---
Assessment complete. Pt asleep, comfortable at this time. IV site was removed from arm with little arousal. No signs of pain or discomfort at the time. is currently at the bedside, states she has not felt well this morning and thought it was from walking but does not seem to be subsiding. I suggested that if she is not feeling well that she leave and we can keep her updated over the phone. She requested to wait a little longer to see if it goes away. Told her I would check back in. Gill is patent draining clear yellow urine. Patient opened eyes to voive but quickly returned to sleep. No other needs at thsi time. Will continue to monitor.
--- NOTE | 2019-12-23 10:38 | NUR ---
Pts states she is feeling better now. Pt was arousable to voice, stated that he was comfortable. attempted to place a pillow under his knees and he stated that this was not comfortable so I removed it. Nicoderm patch was placed on the back of his left arm, old one was not able to be located. No other needs at this time. Will continue to monitor.
--- NOTE | 2019-12-23 10:59 | NUR ---
Pts called stating that he was uncomfortable. He was repositioned on his side and is not comfortable. States he just wants to sleep. Will continue to monitor.
[2019-12-23 11:43] VITALS: BP 107/66; PULSE 65; TEMP 98.6
--- NOTE | 2019-12-23 13:14 | NUR ---
Pt was transported via EMS from floor at this time. All documents were taken, short report given to transport team. walked out with them. No furher questions or concerns
== END 2019-12-23 14:12 | disposition hospice, home (50) | DRG 444 ==
LOC: COL.ER 15:01 → JCC 17:26 → SURG 17:26 → JCC 18:19 → ICU 12-21 17:45 → MEDICAL 12-22 17:05
PROVIDERS: Emergency Medicine; Physician Assistant; Student in an Organized Health Care Education/Training Program; ADMIT Hospitalist
DX: K80.30 Calculus of bile duct with cholangitis, unspecified, without obstruction (principal); S72.001A Fracture of unspecified part of neck of right femur, initial encounter for closed fracture; I21.4 Non-ST elevation (NSTEMI) myocardial infarction; E43 Unspecified severe protein-calorie malnutrition; E87.1 Hypo-osmolality and hyponatremia; N17.9 Acute kidney failure, unspecified; E87.2 Acidosis; M62.82 Rhabdomyolysis; Z68.1 Body mass index [BMI] 19.9 or less, adult; I42.9 Cardiomyopathy, unspecified; Z51.5 Encounter for palliative care; Z66 Do not resuscitate; I10 Essential (primary) hypertension; E78.5 Hyperlipidemia, unspecified; I48.91 Unspecified atrial fibrillation; J44.9 Chronic obstructive pulmonary disease, unspecified; F17.210 Nicotine dependence, cigarettes, uncomplicated; E86.0 Dehydration; B96.20 Unspecified Escherichia coli [E. coli] as the cause of diseases classified elsewhere; D69.6 Thrombocytopenia, unspecified; E87.8 Other disorders of electrolyte and fluid balance, not elsewhere classified; M19.90 Unspecified osteoarthritis, unspecified site; E11.51 Type 2 diabetes mellitus with diabetic peripheral angiopathy without gangrene; E83.39 Other disorders of phosphorus metabolism; K44.9 Diaphragmatic hernia without obstruction or gangrene; I25.2 Old myocardial infarction; Z79.4 Long term (current) use of insulin; Z79.82 Long term (current) use of aspirin
CPT/HCPCS: 99223-AI; 99239; A9284; J0282; J1265; J1644; J1815; J2270; J2405; J2543; J3480; J7030; J7050; J7060